=== PATIENT | male | born 1955 | race Caucasian/White ===

== ENCOUNTER → 2024-11-22 | Outpatient (CLI) | payer MEDICARE, BC, SELFPAY ==
--- NOTE | 2024-11-22 13:40 | RAD_ITS ---
PROCEDURE: ABDOMEN SINGLE VIEW 11/22/2024 REASON FOR EXAM: CALCULUS OF KIDNEY TECHNIQUE: ABDOMEN SINGLE VIEW COMPARISON: None. FINDINGS: Moderate amount of fecal residue in the large bowels. Normal visualized lung bases. There is an unremarkable bowel gas pattern. There is no demonstrated free abdominal air. Normal visualized liver. Normal visualized spleen. Normal visualized kidneys. The soft tissue structures of the pelvis are unremarkable. Moderate diffuse spondylosis. S shaped scoliosis. RAD/Abdomen Single View IMPRESSION: Limited evaluation of the kidneys secondary to moderate amount of fecal residue in the large bowels. Reading Location: [facility]
== END | disposition home or self-care (01) ==
LOC: RAD 13:36
PROVIDERS: PCP Pediatrics; Referring Provider Urology; Visit Provider Urology
DX: N20.0 Calculus of kidney (principal)
CPT/HCPCS: 74018

== ENCOUNTER 2024-11-26 13:04 | Day surgery (SDC) | payer MEDICARE, BC, SELFPAY ==
--- NOTE | 2024-11-24 07:42 | EKG12_ITS ---
Test Reason : PREOP Blood Pressure : */* mmHG Vent. Rate : 56 BPM Atrial Rate : 56 BPM P-R Int : 154 ms QRS Dur : 116 ms QT Int : 458 ms P-R-T Axes : 6 -22 31 degrees QTcB Int : 441 ms Sinus bradycardia Otherwise normal ECG Confirmed by SHIRLEY MATTHEWS, ANN ([id number]), editor sound MARK MULLINS ([id number]) on 11/24/2024 1:20:22 PM Referred By: Nishant Salazar Confirmed By: ANN WATSON MD
[2024-11-24 09:17] LABS: Absolute Lymphocyte Count 1.67 X10^3/uL (0.83-4.51); Absolute Neutrophil Count 3.4 X10^3/uL (2.0-7.7); Basophil# 0.01 X10^3/uL; Basophil% 0.2 % (0-1); Eosinophil# 0.12 X10^3/uL; Eosinophils% 2.1 % (0-5); Hematocrit 40.4 % (40-54); Hemoglobin 13.8 g/dL (13.0-16.5); Lymphocyte # 1.67 X10^3/ul (0.83-4.51); Mean Corp Hgb Conc 34.2 g/dL (32-36); Mean Corpuscular Hgb 29.7 pg (27.0-32.0); Mean Corpuscular Volume 86.9 fL (80-94); Mean Platelet Vol. 10.4 fl (6.2-12.0); Monocyte# 0.54 X10^3/uL; Monocyte% 9.4 % (0-10); NRBC Flagged by Analyzer 0 % (0-5); Neutrophil # 3.41 X10^3/uL (2.7-7.7); Neutrophil % 59.1 % (47-70); Platelet Count 192 K/mm3 (150-450); RBC Distribution Width CV 13.1 % (11.6-14.6); Red Blood Count 4.65 M/mm3 (4.6-6.2); White Blood Count 5.8 K/mm3 (4.4-11.0)
--- NOTE | 2024-11-24 12:32 | PAT.ANESEVAL ---
Pre-Assessment Diagnosis/Proposed Procedure Planned Operative Procedure(s): LEFT URETEROSCOPY, LASER STENT Anesthesia History Anesthesia History - control operator flow coat: Anesthesia History - control operator flow coat Hx Hospitalization No 11/23/24 13:02 Any Problems With Anesthesia No 11/23/24 13:02 Cholinesterase deficiency No 11/23/24 13:02 You/Your Family Experience No 11/23/24 13:02 fever (hyperthermia) with Relationship Recent Exposure to Contagious Disease Does patient have nerve No 11/23/24 13:02 stimulator Patient instructed to have device shut off --Does patient have Pacemaker or ICD? When Was Last Pacemaker Check QUESTION #4 FULL TEXT: You/Your Family Experience fever (hyperthermia) with Anesthesia Last Oral Intake Last Oral intake: Last Oral Intake NPO since Meds taken in AM with sips of water? Meds patient instructed to take am of surgery PONV PONV - control operator flow coat: PONV - control operator flow coat Female No 11/23/24 13:02 HX of Motion Sickness No 11/23/24 13:02 HX of N/V After Surgery No 11/23/24 13:02 Non-Smoker Yes 11/23/24 13:02 Duration of Surgery greater No 11/23/24 13:02 than 60 minutes Number of Risk Factors 1 11/23/24 13:02 PONV Score Low Risk 11/23/24 13:02 Respiratory Assessment Respiratory Assessment - control operator flow coat: Respiratory Tract Infection Hx - control operator flow coat Hx Respiratory Tract Infection No 11/23/24 13:02 STOP Sleep Apnea STOP Sleep Apnea - control operator flow coat: STOP Sleep Apnea - control operator flow coat Hx Hypertension Yes: CONTROLLED WITH MEDS 11/23/24 13:02 Hx Sleep Apnea Yes 11/23/24 13:02 CPAP Yes 11/23/24 13:02 BIPAP No 11/23/24 13:02 Do you snore loudly (louder than talking or can be heard Do you often feel tired/ fatigued/ sleepy during daytime? Has anyone observed you stop breathing during sleep? STOP Results Positive 11/23/24 13:02 QUESTION #5 FULL TEXT : Do you snore loudly (louder than talking or can be heard through closed doors)? Tobacco Use History Tobacco Use History - control operator flow coat: Tobacco Use History - control operator flow coat Tobacco Use Smoking Status Former smoker 11/23/24 13:02 Hx Tobacco Use No 11/23/24 13:02 Years Smoking Packs Smoked per Day Smoking Cessation Date was No - quit smoking greater 11/23/24 13:02 within the last 15 years than 15 years ago Hx Smoking Cessation Date Hx Smoking Cessation Counseling Hematologic Medial History Hematologic Hx - control operator flow coat: Hematologic Medical Hx - fuel operator Hx of Blood Transfusion No 11/23/24 13:02 Hx of Transfusion in last 3 No 11/23/24 13:02 Months Date of Last Transfusion (if within last 3 months) Ever experience any problems No 11/23/24 13:02 with transfusion(s)? Specify any problems Hx of Preganancy in last 3 N/A 11/23/24 13:02 Months Nurse Filling Out Transfusion [email or web address] 11/23/24 13:02 & Questions: Date: 11/23/24 11/23/24 13:02 Time: 13:12 11/23/24 13:02 Patient unable to answer at this time (ie. confused, unrespo /Reproduction History /Reproductive History - control operator flow coat: /Reproductive Hx- control operator flow coat Hx Now Gestational Age (in weeks): EDC: Hx Hx Para Hx Section SAB PFSH Medical History Wears glasses Diabetes DDD (degenerative disc disease) Back pain Inguinal hernia Gastric reflux Former smoker Sleep apnea CPAP (continuous positive airway pressure) dependence History of heart attack History of echocardiogram History of stress test Hypertension Home Medications ?Medication ?Instructions ?Recorded ?Last Taken ?Type aspirin 81 mg tablet,delayed 81 mg PO DAILY 11/23/24 Unknown History release (Adult Aspirin Regimen) atorvastatin 40 mg tablet 40 mg PO DAILY 11/23/24 Unknown History carvedilol 12.5 mg tablet 12.5 mg PO QPM 11/23/24 Unknown History carvedilol 25 mg tablet 25 mg PO DAILY 11/23/24 Unknown History cholecalciferol (vitamin D3) 25 25 mcg PO DAILY 11/23/24 Unknown History mcg (1,000 unit) capsule (Vitamin D3) clopidogrel 75 mg tablet 75 mg PO DAILY 11/23/24 Unknown History famotidine 20 mg tablet 20 mg PO DAILY 11/23/24 Unknown History losartan 100 1 tab PO DAILY 11/23/24 Unknown History mg-hydrochlorothiazide 12.5 mg tablet metformin 500 mg tablet 500 mg PO QPM 06/24/25 Unknown History metformin 500 mg tablet,extended 1,000 mg PO DAILY 11/23/24 Unknown History release 24 hr multivitamin (Daily Multi-Vitamin 1 tab PO DAILY 11/23/24 Unknown History tablet) omega 4-tju-dzx-fish oil 1,200 mg 1 cap PO DAILY 11/23/24 Unknown History (144 mg-216 mg) capsule (Fish Oil) Allergy/AdvReac Type Severity Reaction Status Date / Time diphenhydramine AdvReac PT UNSURE Verified 11/23/24 12:59 OF REACTION Surgical History (Updated 11/23/24 @ 15:02 by Yovani Freitas) History of penile implant Hx of tonsillectomy History of coronary artery stent placement History of cardiac catheterization Social History Smoking Status: Former smoker Audit: Pertinent Findings HISTORY of Pertinent Findings History of Pertinent Findings: 69 y/o male former smoker, diabetic, hx of prior [place], CAD s/p PCI (2003), s/p successful PCI to distal LAD (06/2023), HTN, diabetes, HLD, complaining of progressively worsening SOB. Elevated CT calcium scoring of 1252; patient has significantly increased risk for major adverse cardiac events with known atherosclerotic disease. Pertinent Findings EKG Perinent findings: 10/2024: Sinus bradycardia. 07/2024: NSR, LAD, incomplete RBBB Stress test pertinent findings: 07/2023: Normal exercise stress SPECT myocardial perfusion imaging study; small territory, mild to moderate intensity fixed defect of the basal inferior lateral wall suspect secondary to soft tissue attenuation. RV slightly enlarged. Overall intermediate risk study based on SCAI criteria. Echo (EF%) pertinent findings: 06/2024: LVEF 60%, with moderate LVH. Grade II LV diastolic filling. Normal RV global systolic function. Moderately increased septal thickness Recommendation Anesthesia Recommendation Anesthesia recommendation: OPTIMIZED for anesthesia
[2024-11-26] VITALS (9 sets, daily range): BP systolic 138–158; BP diastolic 66–77; PULSE 49–70; RESP 16–18; TEMP 36.1–37.5; O2SAT 95–100; BMI 29.7
[2024-11-26] MEDS: Lactated Ringers 1,000 ML 15 ML IV (13:51)
[2024-11-26 14:30] LABS: Bedside Glucose 90 mg/dL (74-106)
--- NOTE | 2024-11-26 14:40 | PCM.PRE.AN2 ---
ASA Classification* ASA Classification ASA Classification: 3 Assessment & Plan Anesthesia* Anesthesia Assessment Anesthesia Assessment: Discussed sedation and/or anesthesia options, risks, benefits, and alternatives with patient/parents/legal guardian/POA. Questions invited. The patient/parents/legal guardian/POA seems to understand and agrees to proceed with anesthesia plan. Reviewed the physical assessment, medical history, allergy history and patient home medications list prior to surgery/procedure/anesthetic and documented any changes. Performed airway and anesthesia risk assessments. Anesthesia Type Anesthesia Type: General History Source History Obtained from:: Patient and Chart Anesthesia Focused Assessment* Temperature: 97.7 F Pulse Rate: 52 Blood Pressure: 143/71 Respiratory Rate: 16 Pulse Ox: 100 Oxygen Delivery Method: Room Air Airway Assessment Mouth opens: >3 cm Mallampati Score: I Teeth Condition: Chipped/Broken (Patient has 1 broken tooth left side.) and Missing (Patient is missing several teeth. Rest are tight.) Neck Range of motion (ROM): Full ROM Labs Anesthesia Preop lab: CBC WBC 5.8 K/mm3 (4.4-11.0) 11/24/24 07:59 11/24/24 RBC 4.65 M/mm3 (4.6-6.2) 11/24/24 07:59 11/24/24 Hgb 13.8 g/dL (13.0-16.5) 11/24/24 07:59 11/24/24 Hct 40.4 % (40-54) 11/24/24 07:59 11/24/24 Plt Count 192 K/mm3 (150-450) 11/24/24 07:59 11/24/24 CHEMISTRY POC Glucose 90 mg/dL (74-106) 11/26/24 13:48 11/26/24 COAG Pre-Assessment Diagnosis/Proposed Procedure Planned Operative Procedure(s): LEFT URETEROSCOPY, LASER, STENT Anesthesia History Anesthesia History - child and family services specialist: Anesthesia History - child and family services specialist Hx Hospitalization No 11/23/24 13:02 Any Problems With Anesthesia No 11/23/24 13:02 Cholinesterase deficiency No 11/23/24 13:02 You/Your Family Experience No 11/23/24 13:02 fever (hyperthermia) with Relationship Recent Exposure to Contagious No 11/26/24 13:52 Disease Does patient have nerve No 11/23/24 13:02 stimulator Patient instructed to have device shut off --Does patient have Pacemaker No 11/26/24 13:52 or ICD? When Was Last Pacemaker Check QUESTION #4 FULL TEXT: You/Your Family Experience fever (hyperthermia) with Anesthesia Last Oral Intake Last Oral intake: Last Oral Intake NPO since 05:00 11/26/24 13:52 Meds taken in AM with sips of Yes 11/26/24 13:52 water? Meds patient instructed to take am of surgery Any additional information?: Yes NPO since: 05:00 (Patient water at 5 AM) Meds taken in AM with sips of water?: Yes PONV PONV - child and family services specialist: PONV - child and family services specialist Female No 11/23/24 13:02 HX of Motion Sickness No 11/23/24 13:02 HX of N/V After Surgery No 11/23/24 13:02 Non-Smoker Yes 11/23/24 13:02 Duration of Surgery greater No 11/23/24 13:02 than 60 minutes Number of Risk Factors 1 11/23/24 13:02 PONV Score Low Risk 11/23/24 13:02 Height & Weight Height & Weight: Anesthesia: Height & Weight Height 6 ft 3 in 11/26/24 13:52 Weight: 108 kg 11/26/24 13:52 Body Mass Index (BMI) 29.7 11/26/24 13:52 Respiratory Assessment Respiratory Assessment - child and family services specialist: Respiratory Tract Infection Hx - child and family services specialist Hx Respiratory Tract Infection No 11/23/24 13:02 STOP Sleep Apnea STOP Sleep Apnea - child and family services specialist: STOP Sleep Apnea - child and family services specialist Hx Hypertension Yes: CONTROLLED WITH MEDS 11/23/24 13:02 Hx Sleep Apnea Yes 11/23/24 13:02 CPAP Yes 11/23/24 13:02 BIPAP No 11/23/24 13:02 Do you snore loudly (louder than talking or can be heard Do you often feel tired/ fatigued/ sleepy during daytime? Has anyone observed you stop breathing during sleep? STOP Results Positive 11/23/24 13:02 QUESTION #5 FULL TEXT : Do you snore loudly (louder than talking or can be heard through closed doors)? Tobacco Use History Tobacco Use History - child and family services specialist: Tobacco Use History - child and family services specialist Tobacco Use Smoking Status Former smoker 11/23/24 13:02 Hx Tobacco Use No 11/23/24 13:02 Years Smoking Packs Smoked per Day Smoking Cessation Date was No - quit smoking greater 11/23/24 13:02 within the last 15 years than 15 years ago Hx Smoking Cessation Date Hx Smoking Cessation Counseling Hematologic Medial History Hematologic Hx - child and family services specialist: Hematologic Medical Hx - convertible sofa bedspring tester Hx of Blood Transfusion No 11/23/24 13:02 Hx of Transfusion in last 3 No 11/23/24 13:02 Months Date of Last Transfusion (if within last 3 months) Ever experience any problems No 11/23/24 13:02 with transfusion(s)? Specify any problems Hx of Preganancy in last 3 N/A 11/23/24 13:02 Months Nurse Filling Out Transfusion [email or web address] 11/23/24 13:02 & Questions: Date: 11/23/24 11/23/24 13:02 Time: 13:12 11/23/24 13:02 Patient unable to answer at this time (ie. confused, unrespo /Reproduction History /Reproductive History - child and family services specialist: /Reproductive Hx- child and family services specialist Hx Now Gestational Age (in weeks): EDC: Hx Hx Para Hx Section SAB Active Medications Active Medications: Current Medications Generic Name Dose Route Start Last Admin Trade Name Freq PRN Reason Stop Dose Admin Cefazolin Sodium 2 gm/ Sodium 110 mls @ 200 mls/hr 11/26/24 14:10 Chloride IV 11/26/24 14:42 INTRAOP ONE Lactated Ringer's 1,000 mls @ 15 mls/hr 11/26/24 13:30 11/26/24 13:51 IV 15 mls/hr .Q48H QUINTEN Administration PFSH Medical History Wears glasses Diabetes DDD (degenerative disc disease) Back pain Inguinal hernia Gastric reflux Former smoker Sleep apnea CPAP (continuous positive airway pressure) dependence History of heart attack History of echocardiogram History of stress test Hypertension Home Medications ?Medication ?Instructions ?Recorded ?Last Taken ?Type aspirin 81 mg tablet,delayed 81 mg PO DAILY 11/23/24 11/23/24 History release (Adult Aspirin Regimen) atorvastatin 40 mg tablet 40 mg PO DAILY 11/23/24 Unknown History carvedilol 12.5 mg tablet 12.5 mg PO QPM 11/23/24 Unknown History carvedilol 25 mg tablet 25 mg PO DAILY 11/23/24 11/26/24 04:00 History cholecalciferol (vitamin D3) 25 25 mcg PO DAILY 11/23/24 Unknown History mcg (1,000 unit) capsule (Vitamin D3) clopidogrel 75 mg tablet 75 mg PO DAILY 11/23/24 11/23/24 History famotidine 20 mg tablet 20 mg PO DAILY 11/23/24 11/26/24 History losartan 100 1 tab PO DAILY 11/23/24 Unknown History mg-hydrochlorothiazide 12.5 mg tablet metformin 500 mg tablet 500 mg PO QPM 11/23/24 Unknown History metformin 500 mg tablet,extended 1,000 mg PO DAILY 11/23/24 Unknown History release 24 hr multivitamin (Daily Multi-Vitamin 1 tab PO DAILY 11/23/24 Unknown History tablet) omega 2-rfr-tkb-fish oil 1,200 mg 1 cap PO DAILY 11/23/24 Unknown History (144 mg-216 mg) capsule (Fish Oil) Allergy/AdvReac Type Severity Reaction Status Date / Time diphenhydramine AdvReac PT UNSURE Verified 11/26/24 13:43 OF REACTION Surgical History History of penile implant Hx of tonsillectomy History of coronary artery stent placement History of cardiac catheterization Social History Smoking Status: Former smoker Review of Systems (Anesthesia) ROS Narrative System reviewed and no additional complaints, except as documented.
[2024-11-26] MEDS: Cefazolin 2 GM in 0.9% Normal Saline (100mL Bag) 100 ML IV (16:38)
--- NOTE | 2024-11-26 17:18 | PCM.DC ---
Discharge Instructions Diet Discharge Diet: No restrictions DC O2, CPAP, BIPAP needs Home O2 Discharge instructions: No Dressing / Incision Discharge Activity: Return to Normal Activity and May Not Drive (while taking narcotic pain medications.) Additional Activity Instructions:: Push fluids blood in the urine is normal Dressing / Incision Call your doctor if you observe: Fever of 101 or Higher Follow Up Care Please Follow Up With: Nishant Salazar MD When: Call [phone] for an appointment Test Results: Test results from this visit will be discussed in further detail at your follow-up appointment, if applicable. Discharge Plan Admission Primary Reason for Your Visit: laser stone and stent Attending Provider: Nishant Salazar Primary Care Provider: Dread Bullock Instructions Print Language: Burmese Discharge Orders/Prescriptions Prescriptions: New ciprofloxacin HCl [Cipro] 500 mg tablet 500 mg PO BID Qty: 10 0RF oxycodone 5 mg tablet 5 mg PO Q6H PRN (Reason: pain) 3 Days Qty: 14 0RF Continued atorvastatin 40 mg tablet 40 mg PO DAILY carvedilol 25 mg tablet 25 mg PO DAILY carvedilol 12.5 mg tablet 12.5 mg PO QPM clopidogrel 75 mg tablet 75 mg PO DAILY famotidine 20 mg tablet 20 mg PO DAILY metformin 500 mg tablet extended release 24 hr 1,000 mg PO DAILY losartan-hydrochlorothiazide 100-12.5 mg tablet 1 tab PO DAILY omega 4-xkk-gde-fish oil [Fish Oil] 1,200 (144-216) mg capsule 1 cap PO DAILY multivitamin [Daily Multi-Vitamin] Tablet 1 tab PO DAILY cholecalciferol (vitamin D3) [Vitamin D3] 25 mcg (1,000 unit) capsule 25 mcg PO DAILY aspirin [Adult Aspirin Regimen] 81 mg tablet,delayed release (DR/EC) 81 mg PO DAILY metformin 500 mg tablet 500 mg PO QPM Other Ambulatory Orders: 12 Lead EKG (Routine) Timeframe: 20241124 Location: None Selected Ordered By: Dr. Will Nevarez Referrals / Follow Up: Mayra Bullock MD [Non-Staff] - Nishant Salazar MD [Med Staff - Active Staff] - Disposition Disposition (needs filled in before D/C Order can be placed): Home, Self Care
--- NOTE | 2024-11-26 17:18 | PCM.OPRPT ---
Operative Report (Standard) Operative Information Date of Procedure: 11/26/24 Pre-Operative Diagnosis: Distal left ureteral calculi Post-Operative Diagnosis: The same Surgery/Procedure Performed: Cystoscopy balloon dilation of the left ureter, left retrograde pyelogram, left ureteroscopy laser lithotripsy of stone left stent placement small engine technician: No Type of Anesthesia: General RN Documented Start/Stop Times: Operation Date: 11/26/24 15:15 Case Time Into Pre-Op 11/26/24 13:15 Anesthesia Start 11/26/24 16:28 Into Room 11/26/24 16:28 Procedure Start 11/26/24 16:40 Procedure End 11/26/24 17:11 Procedure Start Time: 16:40 Procedure Stop Time: 17:19 Select all DRAINS/GRAFTS/IMPLANTS that apply: Drains Drain details: Left stent Estimated Blood Loss: Minimal Specimen collected: No Description of surgery: Patient was taken back to the operating room after induction of anesthesia he was placed in dorsolithotomy position. Penis and testicles were prepped and draped in usual sterile fashion went into the bladder with a cystoscope upon entering the bladder he had a lot of inflammation in the trigone in the left and right trigone area making the identification of the ureter quite difficult probably from the distal stone that was stuck there after looking around for while I was able to fortunately find the left ureteral orifice I then used a balloon dilator advanced a wire passed the stone under fluoroscopic guidance and then balloon dilated the distal left ureter I then put a second wire to have a working wire and a safety wire left the safety wire in place for the entire case and then over the working wire went in with a flexible ureteroscope because of the stone in the distal ureter hard to laser the stone because the ureteroscope kept flipping out the ureter so then I switched over to the semirigid ureteroscope and finished lasering the stone completely and all the fragments and passed into the bladder after successfully lasering the stone and then I went back up the ureter with the flexible ureteroscope went all the way up to the kidney and inspected the upper pole midpole lower pole the kidney worked my way down the ureter no other stones are seen along the course of the ureter and then the ureteroscope was removed then I backloaded the cystoscope over the wire and then over the wire placed a stent it was a 6 Lao by 26 cm stent once the stent was in good position and I pulled the wire the stent coiled in the bladder and in the kidney and good position of the string on the stent for easy extraction. I cut the strings short to prevent extraction by the patient and then patient ascetic was reversed patient will follow-up next for cystoscopy stent removal in the office Surgical Findings: Stone in the distal left ureter lasered and removed a very tight distal left ureter Complications Complications: No Admit VTE Documentation VTE Present on Admission: No VTE Mechan Device Prophylaxis: SCD's VTE Pharm Prophylaxis ordered?: No
--- NOTE | 2024-11-26 17:22 | PCM.POST.ANE ---
Anesthesia: Postop Eval I Current Vital Signs Temperature: 97 F Pulse Rate: 70 Blood Pressure: 158/77 Respiratory Rate: 18 Pulse Ox: 95 Oxygen Delivery Method: Room Air Assessment Airway patent: Yes Spontaneous unlabored respirations: Yes Mental status: Awake nausea: No Vomiting: No Anesthesia Complication: No Fluid Hydration Crystalloid volume administer (ml): 1,300 Total IV fluid infused: 1,300 Progress Note Anesthesia document: Postop Eval 1 completed: Yes
--- NOTE | 2024-11-29 10:35 | POSTOPAN2_ITS ---
Anesthesia Postop Eval I Sum Postop Eval Completion status Anesthesia document: Postop Eval 1 completed: Yes Anesthesia Postop Eval I Summary Anesthesia Postop Eval I Summary: Anesthesia Postop Eval I: Assessment Summary Airway patent Yes 11/26/24 17:23 BRAZING FURNACE FEEDER.ACAR Spontaneous unlabored Yes 11/26/24 17:23 BRAZING FURNACE FEEDER.ACAR respirations Mental status Awake 11/26/24 17:23 BRAZING FURNACE FEEDER.ACAR nausea No 11/26/24 17:23 BRAZING FURNACE FEEDER.ACAR Vomiting No 11/26/24 17:23 BRAZING FURNACE FEEDER.ACAR Anesthesia Postop Eval I: Fluid Summary Crystalloid volume administer 1,300 11/26/24 17:23 BRAZING FURNACE FEEDER.ACAR (ml) Colloids volume administered ( ml) Blood Product volume administered (ml) Total IV fluid infused 1,300 11/26/24 17:23 BRAZING FURNACE FEEDER.ACAR Anesthesia Postop Eval I: Summary Notes Anesthesia Complication No 11/26/24 17:23 BRAZING FURNACE FEEDER.ACAR Anesthesia Complication Comment: Post-operative progress note Anesthesia: Postop Eval II Evaluation Mental status: Awake and Calm Pain Level: 1 nausea: No Vomiting: No Complications Anesthesia Complication: No
--- NOTE | 2024-11-29 10:35 | PCM.POSTANE2 ---
Anesthesia Postop Eval I Sum Postop Eval Completion status Anesthesia document: Postop Eval 1 completed: Yes Anesthesia Postop Eval I Summary Anesthesia Postop Eval I Summary: Anesthesia Postop Eval I: Assessment Summary Airway patent Yes 11/26/24 17:23 ENVIRONMENTAL PROGRAMS SPECIALIST.ACAR Spontaneous unlabored Yes 11/26/24 17:23 ENVIRONMENTAL PROGRAMS SPECIALIST.ACAR respirations Mental status Awake 11/26/24 17:23 ENVIRONMENTAL PROGRAMS SPECIALIST.ACAR nausea No 11/26/24 17:23 ENVIRONMENTAL PROGRAMS SPECIALIST.ACAR Vomiting No 11/26/24 17:23 ENVIRONMENTAL PROGRAMS SPECIALIST.ACAR Anesthesia Postop Eval I: Fluid Summary Crystalloid volume administer 1,300 11/26/24 17:23 ENVIRONMENTAL PROGRAMS SPECIALIST.ACAR (ml) Colloids volume administered ( ml) Blood Product volume administered (ml) Total IV fluid infused 1,300 11/26/24 17:23 ENVIRONMENTAL PROGRAMS SPECIALIST.ACAR Anesthesia Postop Eval I: Summary Notes Anesthesia Complication No 11/26/24 17:23 ENVIRONMENTAL PROGRAMS SPECIALIST.ACAR Anesthesia Complication Comment: Post-operative progress note Anesthesia: Postop Eval II Evaluation Mental status: Awake and Calm Pain Level: 1 nausea: No Vomiting: No Complications Anesthesia Complication: No
== END 2024-11-26 18:20 | disposition home or self-care (01) ==
LOC: SDC 13:06 → AC 13:08
PROVIDERS: Anesthesiology; PCP Family Medicine; Referring Provider Urology; Visit Provider Urology
PROC: 0TJ98ZZ Inspection of Ureter, Via Natural or Artificial Opening Endoscopic (ICD-10-PCS; CPT 52352; principal; 2024-11-26 15:05)
DX: N20.1 Calculus of ureter (principal); E11.42 Type 2 diabetes mellitus with diabetic polyneuropathy; I25.10 Atherosclerotic heart disease of native coronary artery without angina pectoris; I10 Essential (primary) hypertension; I25.2 Old myocardial infarction; Z95.5 Presence of coronary angioplasty implant and graft; Z79.02 Long term (current) use of antithrombotics/antiplatelets; Z79.82 Long term (current) use of aspirin; Z79.84 Long term (current) use of oral hypoglycemic drugs; Z79.899 Other long term (current) drug therapy; Z87.891 Personal history of nicotine dependence
CPT/HCPCS: 52356; 00918; 36415; 76000; 82962; 85025; 93005; C1769; C2617; J2405